=== PATIENT | female | born 1955 | race Caucasian/White ===

== ENCOUNTER → 2017-12-02 | Outpatient (CLI) | payer BC, OTHER ==
--- NOTE | 2017-12-02 21:13 | CT ---
EXAMINATION TYPE: CT brain wo con DATE OF EXAM: 12/02/2017 COMPARISON: NONE HISTORY: Headache Unenhanced CT of the brain was performed. The ventricles, basal cisterns and sulci overlying the cerebral convexities demonstrate mild enlargem ent. There is no evidence for intracranial hemorrhage or sulcal effacement. There is decreased attenuation about the periventricular white matter and deep white matter of both c erebral hemispheres, compatible with chronic small vessel ischemia. Differential diagnosis does inclu de demyelination. No mass effects are seen.No midline shift. Osseous calvarium is intact. If symptoms persist consider MRI. IMPRESSION: 1. Age related atrophic and chronic small vessel ischemic change without acute intracranial process s een at this time.
== END | disposition home or self-care (01) ==
LOC: RADCTMAIN 19:02
PROVIDERS: ATTEND Family Medicine
DX: G31.1 Senile degeneration of brain, not elsewhere classified (principal); I67.82 Cerebral ischemia
CPT/HCPCS: 70450

== ENCOUNTER → 2021-01-23 | Outpatient (CLI) | payer MEDICARE, OTHER ==
--- NOTE | 2021-01-23 08:17 | CT ---
EXAMINATION TYPE: CT chest wo con DATE OF EXAM: 01/23/2021 COMPARISON: NONE HISTORY: Hypertension, SOB, chest pain, Dizziness, Covid-[address] DLP: 223.7 mGycm. Automated Exposure Control for Dose Reduction was Utilized. TECHNIQUE: CT scan of the thorax is performed without IV contrast. FINDINGS: LUNGS: Focal mild linear scarring in the right middle lobe coronal image 21. Mild biapical pleural/pa renchymal scarring. Additional scattered areas of mild linear scarring for reference in the lingula s agittal image 87 posterior aspect. No suspicious focal consolidation or groundglass opacity. No suspi cious nodules or masses. No pleural effusion or pneumothorax. Tracheobronchial tree is patent. MEDIASTINUM: Lack of IV contrast is noted to limit evaluation for mediastinal and especially hilar ad enopathy. There are no definitive greater than 1 cm hilar or mediastinal lymph nodes. Heart size uppe r limits of normal. No pericardial effusion is seen. There is ascending aortic aneurysm up to 4.1 cm in diameter axial image 25. Normal three-vessel origin from arch without aneurysm extension. Mild to moderate coronary artery calcification. OTHER: Calcification anterior to left hepatic lobe inferior margin image 69. Mild multilevel spurring in the spine. There is 2.0 x 1.1 cm x 2.8 cm intramuscular lipoma posterior lateral lower thoracic c hest wall muscle axial image 38 and coronal image 73 IMPRESSION: Mild chronic parenchymal changes without acute pulmonary process. Note is made of 4.1 cm ascending aortic aneurysm.
--- NOTE | 2021-01-23 08:41 | US ---
EXAMINATION TYPE: US carotid duplex BILAT DATE OF EXAM: 01/23/2021 COMPARISON: NONE CLINICAL HISTORY: I10 hypertension, R42 Dizzy,. Patient states having covid last year. Dizzy. HTN. EXAM MEASUREMENTS: RIGHT: Peak Systolic Velocity (PSV) cm/sec ----- Right CCA: 75.4 ----- Right ICA: 116.1 ----- Right ECA: 91.9 ICA/CCA ratio: 1.5 RIGHT: End Diastole cm/sec ----- Right CCA: 23.7 ----- Right ICA: 41.8 ----- Right ECA: 17.6 LEFT: Peak Systolic Velocity (PSV) cm/sec ----- Left CCA: 54.8 ----- Left ICA: 157.8 ----- Left ECA: 57.0 ICA/CCA ratio: 2.9 LEFT: End Diastole cm/sec ----- Left CCA: 17.5 ----- Left ICA: 48.6 ----- Left ECA: 13.1 VERTEBRALS (direction of flow): Right Vertebral: Antegrade Left Vertebral: Antegrade Rhythm: Normal Bilateral wall thickening. Elevated left ICA velocities. IMPRESSION: 1. Atherosclerotic plaque with findings suggestive of a 50-69% stenosis involving the proximal left I CA. Criteria for Assigning % of Stenosis / Diameter reduction (Estimation based on the indirect measurements of the internal carotid artery velocities (ICA PSV). 1. Normal (no stenosis)=ICA PSV < 125 cm/s: ratio < 2.0: ICA EDV<40 cm/s. 2. Less than 50% stenosis=ICA PSV < 125 cm/s: ratio < 2.0: ICA EDV<40 cm/s. 3. 50 to 69% stenosis=ICA PSV of 125 to 230 cm/s: ration 2.0 ? 4.0: ICA EDV 40-100 cm/s. 4. Greater than 70% stenosis to near occlusion= ICA PSV > 230 cm/s: ratio > 4.0: ICA EDV > 100 cm/s. 5. Near occlusion= ICA PSV velocities may be low or undetectable: variable ratio and ICA EDV. 6. Total occlusion=unable to detect flow.
== END ==
LOC: RADCTMAIN 07:26
PROVIDERS: ATTEND Family Medicine
DX: I10 Essential (primary) hypertension (principal); I71.2 Thoracic aortic aneurysm, without rupture; Z86.16 Personal history of COVID-19; I65.23 Occlusion and stenosis of bilateral carotid arteries
CPT/HCPCS: 71250; 93880

== ENCOUNTER → 2021-02-25 | Outpatient (CLI) | payer MEDICARE, OTHER ==
--- NOTE | 2021-02-26 11:35 | ECHOF ---
Referral Reason:Q23.1 Congenital insufficiency of aortic valve MEASUREMENTS -------- HEIGHT: 154.9 cm WEIGHT: 68.0 kg BP: 134/79 RVIDd: 2.8 cm (< 3.3) IVSd: 1.2 cm (0.6 - 1.1) LVIDd: 4.1 cm (3.9 - 5.3) LVPWd: 1.2 cm (0.6 - 1.1) IVSs: 1.6 cm LVIDs: 3.2 cm LVPWs: 1.5 cm LA Diam: 2.8 cm (2.7 - 3.8) LAESV Index (A-L): 18.35 ml/m Ao Diam: 3.1 cm (2.0 - 3.7) AV Cusp: 1.8 cm (1.5 - 2.6) MV EXCURSION: 16.144 mm (> 18.000) MV EF SLOPE: 57 mm/s (70 - 150) EPSS: 0.7 cm MV E Efren: 0.79 m/s MV DecT: 249 ms MV A Efren: 0.74 m/s MV E/A Ratio: 1.07 FINDINGS -------- Sinus rhythm. This was a technically good study. The left ventricular size is normal. There is borderline concentric left ventricular hypertrophy. Overall left ventricular systolic function is normal with, an EF between 60 - 65 %. The right ventricle is normal in size. Normal LA size by volume 22+/-6 ml/m2. The right atrium is normal in size. Interatrial and interventricular septum intact. There is mild aortic valve sclerosis. Trace amount of aortic regurgitation. The mitral valve leaflets are mildly thickened. There is trace mitral regurgitation. The tricuspid valve appears structurally normal. There is no pulmonic regurgitation present. The aortic root size is normal. Normal inferior vena cava with normal inspiratory collapse consistent with estimated right atrial pre ssure of 5 mmHg. There is no pericardial effusion. CONCLUSIONS -------- 1. The left ventricular size is normal. 2. There is borderline concentric left ventricular hypertrophy. 3. Overall left ventricular systolic function is normal with, an EF between 60 - 65 %. 4. There is mild aortic valve sclerosis. 5. Trace amount of aortic regurgitation. 6. The mitral valve leaflets are mildly thickened. 7. There is trace mitral regurgitation. 8. There is no pericardial effusion. SECTION GANG WORKER: HUGO Escobar
== END | disposition home or self-care (01) ==
LOC: RADECHMAIN 12:50
PROVIDERS: ATTEND Surgery
DX: I08.0 Rheumatic disorders of both mitral and aortic valves (principal)
CPT/HCPCS: 93306

== ENCOUNTER → 2021-08-01 | Outpatient (CLI) | payer BC, OTHER ==
--- NOTE | 2021-08-01 15:06 | CT ---
EXAMINATION TYPE: CT chest wo con DATE OF EXAM: 08/01/2021 COMPARISON: 01/23/2021 HISTORY: Pt had Covid 19 in 2019. Thoracic aneurysm w/out rupture CT DLP: [address] of the chest was performed with lung and mediastinal window settings submitted. The la ck of contrast limits evaluation of the vascular, mediastinal and parenchymal structures including th e upper abdomen. LUNGS: The lungs are clear and free of infiltrate. No atelectasis. No pulmonary nodule or mass is de tected. No pleural effusion. No CT evidence of interstitial lung disease. MEDIASTINUM/ROMANA: Ascending thoracic aortic aneurysm measuring 4.1 cm AP dimension versus 4.1 cm prev iously. The remainder of the thoracic aorta is of normal caliber. Mild atheromatous change noted. Mil d cardiomegaly appreciated. No evidence for mediastinal mass. No lymph nodes greater than 1cm. UPPER ABDOMEN: No significant abnormality is seen. OTHER: No significant other abnormality. IMPRESSION: 1. Stable ascending thoracic aortic aneurysm.
== END | disposition home or self-care (01) ==
LOC: RADCTMAIN 14:11
PROVIDERS: ATTEND Family Medicine
DX: I71.2 Thoracic aortic aneurysm, without rupture (principal); Z86.16 Personal history of COVID-19
CPT/HCPCS: 71250

== ENCOUNTER 2022-10-09 09:56 | Day surgery (SDC) | payer MEDICARE, OTHER ==
[2022-09-26 11:32] VITALS: BMI 28.3
[~2022-10-09 09:56] MED LIST: ALPRAZolam 0.25 MG TAB PO PRN; ALPRAZolam 0.5 MG TAB PO PRN; ASPIRIN 325 MG TAB PO STA
[2022-10-09] MEDS ORDERED: SODIUM CHLORIDE 0.9% 1,000 ML IV ONE ×2 (10:35→12:24)
[2022-10-09 11:18] LABS: Basophils # (A) 0.1 k/uL (0-0.2); Basophils % (A) 1 %; Eosinophils # (A) 0.3 k/uL (0-0.7); Eosinophils % (A) 4 %; HCT 36.5 % (34.0-46.0); HGB 12.7 gm/dL (11.4-16.0); Lymphocytes # (A) 3.9 k/uL (1.0-4.8); Lymphocytes % (A) 49 %; MCH 30.8 pg (25.0-35.0); MCHC 34.8 g/dL (31.0-37.0); MCV 88.3 fL (80.0-100.0); Monocytes # (A) 0.5 k/uL (0-1.0); Monocytes % (A) 6 %; Neutrophils # (A) 2.9 k/uL (1.3-7.7); Neutrophils % (A) 36 %; Platelet Count 306 k/uL (150-450); RBC 4.13 m/uL (3.80-5.40); RDW 11.8 % (11.5-15.5); WBC 7.9 k/uL (3.8-10.6)
[2022-10-09 11:21] LABS: Calcium 9.5 mg/dL (8.4-10.2); Potassium 4.5 mmol/L (3.5-5.1)
[2022-10-09] MEDS ORDERED: MIDAZOLAM 2 MG/2 ML VIAL IV ONE (12:50)
[2022-10-09] MEDS ORDERED: fentaNYL (PF) 50 MCG/ML 2 ML AMP IV ONE (12:50)
[2022-10-09] MEDS ORDERED: LIDOCAINE 1% INJ 10MG/ML (5 ML VIAL-PF) SQ ONE (12:51)
[2022-10-09] MEDS ORDERED: VERAPAMIL SYRINGE (5 MG/10 ML) INTRAARTER ONE (12:52)
[2022-10-09] MEDS: HEPARIN SODIUM 1,000 UN/ML (10ML VL) IV ONE ×2 (12:56→13:20)
[2022-10-09] MEDS ORDERED: CLOPIDOGREL 75 MG TAB PO ONE (13:13)
[2022-10-09] MEDS: NITROGLYCERIN 1000MCG/10ML SYRINGE INTRACORON ONE ×2 (13:15→13:28)
[2022-10-09] MEDS ORDERED: CYCLOBENZAPRINE 10 MG TAB PO PRN (13:34)
[2022-10-09] MEDS ORDERED: NITROGLYCERIN SL TABS 0.4 MG TAB SUBLINGUAL PRN (13:34)
[2022-10-09] MEDS ORDERED: ZOLPIDEM 5 MG TAB PO PRN (13:34)
[2022-10-09] MEDS ORDERED: RX INFO: IV CONTRAST WAS GIVEN 1 EACH MISC MISCELLANE PRN (13:34)
[2022-10-09] MEDS ORDERED: MAG HYDROX/AL HYDROX/SIMETH 30 ML CUP PO PRN (13:34)
[2022-10-09] MEDS ORDERED: ATROPINE SULFATE 0.1 MG/ML 10ML SYRINGE IV PRN (13:34)
--- NOTE | 2022-10-09 13:40 | P.PCN ---
Date of Procedure: 10/09/22 Operative Findings: CARDIAC CATHETERIZATION AND PERCUTANEOUS CORONARY INTERVENTION PERFORMING PHYSICIAN: Jaylen Alanis MD, RPVI PROCEDURE PERFORMED: 1. Selective right coronary angiogram 2. Intravascular ultrasound of the right coronary artery 3. Successful stenting of mid RCA using 3.5 x 23 mm Xience NAKUL which with an excellent angiographic results INDICATION: This is a 67-year-old female patient was experiencing symptoms of chest discomfort which she underwent a coronary CTA and that showed 70% lesion involving the right coronary artery. COMPLICATION: None APPROACH: Right radial approach LEVEL OF SEDATION: Moderate with the sedation time off 41 minutes PROCEDURE DESCRIPTION: After obtaining an informed consent the patient was brought to the cardiac r and d lab technician. The right radial artery was cannulated using puncture technique, the micropuncture wire passed easily then I placed a 6-Tongan sheath at the right radial artery. I gave the patient 2 mg of verapamil intra-arterial and initially 4000 use of heparin intravenous and subsequently additional 2000 of heparin given with continuous ACT monitoring. I did engage the RCA using JR4 guiding catheter. I did right coronary angiogram which revealed severe tubular lesion involving the mid right coronary artery. Subsequently I did wire the RCA using a run-through wire. And O ultrasound was performed and showed an RCA diameter about 3.5 mm. I did predilatation using 2.5 mm balloon and then I deployed 3.5 x 23 mm stent. The proximal portion of the stent was postdilated using 4 mm balloon. The following angiogram showed an area of concern involving the proximal segment of the stented area. I did again and O ultrasound which showed no obvious dissection. Because of that I decided to treat the patient medically. The procedure was completed without any chronic elevation SELECTIVE CORONARY ANGIOGRAM: The right coronary artery: Large caliber vessel and a dominant vessel. The mid RCA has a tubular lesion appears to be in the range of 50%. The RCA distally appeared to be angiographically normal and bifurcates into PDA and PLV branches PCI OF THE RCA: Please see above CONCLUSION: Successful stenting of the mid right coronary artery with an excellent angiographic results POSTPROCEDURE MANAGEMENT: #1 dual antiplatelet therapy using aspirin and Plavix for at least 6 months and preferably twelve-month #2 aggressive cholesterol control #3 follow-up with the patient
[2022-10-09] MEDS ORDERED: IOPAMIDOL-370 100ML BTL INJ ONE (13:42)
[2022-10-09] MEDS ORDERED: SODIUM CHLORIDE 0.9% 1,000 ML in EMPTY BAG 1 BAG IV SCH (13:45)
[2022-10-09] MEDS: SODIUM CHLORIDE 0.9% 1,000 ML in EMPTY BAG 1 BAG IV SCH ×2 (15:12→21:51)
[2022-10-09] MEDS: PREGABALIN 50 MG CAP PO SCH ×2 (16:34→20:42)
[2022-10-09] MEDS: carvediloL 3.125 MG TAB PO SCH (17:18)
[2022-10-09] MEDS: ATORVASTATIN 80 MG TAB PO SCH ×2 (20:42→20:43)
[2022-10-09] MEDS: lisinopriL 20 MG TAB PO SCH (20:42)
[2022-10-10] MEDS: carvediloL 3.125 MG TAB PO SCH (06:30)
[2022-10-10 07:44] VITALS: RESP 16; TEMP 98
--- NOTE | 2022-10-10 07:58 | P.DS ---
Providers Attending physician: Jaylen Alanis Consults: 10/09/22 13:35 Consult Physician Routine Consulting Provider: [facility] Consult Reason/Comments: Post Interventional Patient Do you want consulting provider notified?: Already Contacted Primary care physician: Sark[facility] Course: The patient is a pleasant 67-year-old female patient went underwent yesterday successful stenting of the right coronary artery with an excellent angiographic results and with no complication from right radial approach. The patient was seen this morning. She is asymptomatic. She's he wouldn't be stable. The right radial site is soft and nontender with no bruises. The patient is going to be discharged on dual antiplatelet therapy along with high intensity statin to be seen in the office in a week Plan - Discharge Summary Discharge Rx Participant: No New Discharge Prescriptions: New Clopidogrel [Plavix] 75 mg PO DAILY #90 tablet Atorvastatin [Lipitor] 80 mg PO HS #90 tab Continue Cyclobenzaprine [Flexeril] 10 mg PO TID PRN PRN Reason: Pain Albuterol Sulfate [Proventil Hfa] 1 - 2 puff INHALATION Q6HR PRN PRN Reason: Shortness Of Breath lisinopriL [Zestril] 20 mg PO BID Albuterol Inhaler [Ventolin Hfa Inhaler] 1 - 2 puff INHALATION DIRECTED PRN PRN Reason: Shortness Of Breath DULoxetine HCL [Cymbalta] 30 mg PO DAILY Multivit with Calcium,Iron,Min [Women's Multivitamin] 1 each PO DAILY carvediloL [Coreg] 3.125 mg PO BID Pregabalin [Lyrica] 50 mg PO TID Ezetimibe [Zetia] 10 mg PO DAILY L.acidoph,Paracasei, B.lactis [Probiotic] 1 each PO DIRECTED Astragalus Supplement 1 dose PO DAILY Aspirin [Adult Low Dose Aspirin EC] 81 mg PO DAILY Discharge Medication List Albuterol Sulfate [Proventil Hfa] 1 - 2 puff INHALATION Q6HR PRN 06/08/15 [History] Cyclobenzaprine [Flexeril] 10 mg PO TID PRN 06/08/15 [History] Albuterol Inhaler [Ventolin Hfa Inhaler] 1 - 2 puff INHALATION DIRECTED PRN 09/26/22 [History] Aspirin [Adult Low Dose Aspirin EC] 81 mg PO DAILY 09/26/22 [History] Astragalus Supplement 1 dose PO DAILY 09/26/22 [History] DULoxetine HCL [Cymbalta] 30 mg PO DAILY 09/26/22 [History] Ezetimibe [Zetia] 10 mg PO DAILY 09/26/22 [History] L.acidoph,Paracasei, B.lactis [Probiotic] 1 each PO DIRECTED 09/26/22 [Hist ory] Multivit with Calcium,Iron,Min [Women's Multivitamin] 1 each PO DAILY 09/26/22 [History] Pregabalin [Lyrica] 50 mg PO TID 09/26/22 [History] carvediloL [Coreg] 3.125 mg PO BID 09/26/22 [History] lisinopriL [Zestril] 20 mg PO BID 09/26/22 [History] Atorvastatin [Lipitor] 80 mg PO HS #90 tab 10/10/22 [Rx] Clopidogrel [Plavix] 75 mg PO DAILY #90 tablet 10/10/22 [Rx] Follow up Appointment(s)/Referral(s): Jaylen Alanis MD [STAFF PHYSICIAN] - 1 Week (APPOINTMENT MADE ON October @ 2:30PM )
[2022-10-10] MEDS ORDERED: CLOPIDOGREL 75 MG TAB PO SCH (09:00)
[2022-10-10] MEDS ORDERED: LACTOBACILLUS ACIDOPH & BULGAR 1 EACH PACKET PO SCH (09:00)
[2022-10-10] MEDS ORDERED: DULoxetine HCL 30 MG CAPSULE.DR PO SCH (09:00)
[2022-10-10] MEDS ORDERED: ASPIRIN 81 MG PO SCH (09:00)
[2022-10-10] MEDS ORDERED: [UNRECOGNIZED DRUG - OTHER] PO SCH (09:00)
[2022-10-10] MEDS ORDERED: EZETIMIBE 10 MG TAB PO SCH (09:00)
[2022-10-10] MEDS ORDERED: MULTIVITAMINS, THERA 1 EACH TAB PO SCH (09:00)
[2022-10-10] MEDS: lisinopriL 20 MG TAB PO SCH (09:29)
[2022-10-10] MEDS: PREGABALIN 50 MG CAP PO SCH (09:29)
[2022-10-10 09:36] VITALS: BP 107/68; PULSE 69
== END 2022-10-10 10:20 | disposition home or self-care (01) ==
LOC: CATHCVL 09:56 → 6NMEDSUR 14:25 → CATHCVL 10-10 10:20
PROVIDERS: ATTEND Internal Medicine Interventional Cardiology
DX: I65.23 Occlusion and stenosis of bilateral carotid arteries (principal); I10 Essential (primary) hypertension; E78.5 Hyperlipidemia, unspecified; I77.819 Aortic ectasia, unspecified site; I25.10 Atherosclerotic heart disease of native coronary artery without angina pectoris; F17.210 Nicotine dependence, cigarettes, uncomplicated; Z79.82 Long term (current) use of aspirin; Z79.51 Long term (current) use of inhaled steroids; Z79.899 Other long term (current) drug therapy; Z82.49 Family history of ischemic heart disease and other diseases of the circulatory system
CPT/HCPCS: 92978; 93454; 80048; 82565; 85025; C9600; C1769 ×3; C1887; C1894; C1725 ×2; C1753; C1874; J2250; J2001; J3010; J1644; Q9967

== ENCOUNTER → 2023-01-26 | Outpatient (CLI) | payer MEDICARE ==
--- NOTE | 2023-01-26 15:55 | CT ---
EXAMINATION TYPE: CT chest wo con DATE OF EXAM: 01/26/2023 COMPARISON: Prior CT August 01, 2021 HISTORY: aneurysm. Hypertension. CT DLP: 306.3 mGycm. Automated Exposure Control for Dose Reduction was Utilized. TECHNIQUE: CT scan of the thorax is performed without IV contrast. FINDINGS: LUNGS: Mild bibasilar linear scarring and atelectasis. No concerning parenchymal mass or nodule ident ified. There is no pleural effusion or pneumothorax seen. The tracheobronchial tree is patent. MEDIASTINUM: Lack of IV contrast is noted to limit evaluation for mediastinal and especially hilar ad enopathy. There are no definitive new greater than 1 cm mediastinal lymph nodes. No pericardial eff usion is seen. Heart size upper limits of normal. Coronary stent in the RCA distribution as seen on c urrent study. There is ascending aortic aneurysm up to 4.0 cm redemonstrated does not extend into the descending aorta. No significant change from prior. OTHER: No additional significant abnormality is seen. IMPRESSION: Stable 4.0 cm ascending aortic aneurysm when accounting for technical differences.
== END | disposition home or self-care (01) ==
LOC: RADCTMAIN 14:24
PROVIDERS: ATTEND Family Medicine
DX: I71.21 Aneurysm of the ascending aorta, without rupture (principal); R01.0 Benign and innocent cardiac murmurs; I10 Essential (primary) hypertension
CPT/HCPCS: 71250

== ENCOUNTER → 2023-07-28 | Outpatient (CLI) | payer MEDICARE ==
--- NOTE | 2023-07-28 20:28 | XR ---
EXAMINATION TYPE: XR knee complete RT DATE OF EXAM: 07/28/2023 COMPARISON: NONE HISTORY: Pain TECHNIQUE: Three views are submitted. FINDINGS: Spurring along the upper margin of the patella. There is mild narrowing of patellofemoral joint and m edial compartment knee joint. There is a bony density which could represent loose body within the kne e joint. Diffuse osteopenia.. Osseous structures are intact. No acute fracture seen. IMPRESSION: 1. No acute fracture or dislocation. A possible loose body within the knee joint. Recommend MRI.
--- NOTE | 2023-07-28 20:29 | XR ---
EXAM TYPE: LUMBAR SPINE X RAY SERIES COMPARISON: NONE HISTORY: Pain TECHNIQUE: 4 views are submitted. FINDINGS: Alignment is anatomic. The pedicles are intact. The transverse processes are intact. There is mult ilevel moderate degenerative disc disease most marked at L5-S1 with grade 1 anterior listhesis. Facet arthropathy L5-S1. Diffuse osteopenia. Vascular calcifications noted. IMPRESSION: 1. Multilevel moderate to severe degenerative disc disease with grade 1 anterolisthesis L5 on S1. Shayy pect foraminal encroachment. Recommend MRI.
== END | disposition home or self-care (01) ==
LOC: RADXRYALE 16:14
PROVIDERS: ATTEND Family Medicine
DX: M51.36 Other intervertebral disc degeneration, lumbar region (principal); M43.17 Spondylolisthesis, lumbosacral region; M25.561 Pain in right knee
CPT/HCPCS: 72110

== ENCOUNTER → 2024-02-17 | Outpatient (CLI) | payer MEDICARE ==
--- NOTE | 2024-02-18 12:05 | US ---
EXAMINATION TYPE: US venous doppler duplex LE RT DATE OF EXAM: 02/17/2024 1:07 PM COMPARISON: NONE CLINICAL INDICATION: Female, 68 years old with history of I80.221 PHLEBITIS; pain SIDE PERFORMED: Right TECHNIQUE: The lower extremity deep venous system is examined utilizing real time linear array sonog emani with graded compression, doppler sonography and color-flow sonography. VESSELS IMAGED: Common Femoral Vein Deep Femoral Vein Greater Saphenous Vein * Femoral Vein Popliteal Vein Small Saphenous Vein * Proximal Calf Veins (* superficial vessels) Right Leg: Negative for DVT IMPRESSION: Grayscale, color doppler, spectral doppler imaging performed of the deep veins of the lo wer extremities. There is normal flow, compressibility, vascular waveforms.
== END | disposition home or self-care (01) ==
LOC: RADUSWWP 12:50
PROVIDERS: ATTEND Family Medicine
DX: I80.221 Phlebitis and thrombophlebitis of right popliteal vein (principal); M79.604 Pain in right leg; R60.9 Edema, unspecified

== ENCOUNTER → 2025-01-12 | Outpatient (CLI) | payer MEDICARE ==
--- NOTE | 2025-01-12 12:33 | CT ---
EXAMINATION TYPE: CT chest wo con CT DLP: 233.50 mGycm, Automated exposure control for dose reduction was used. DATE OF EXAM: 01/12/2025 12:19 PM COMPARISON: Multiple CT chest with most recent 01/26/2023 CLINICAL INDICATION:Female, 69 years old with history of I71.20 THORACIC AORTIC ANEURYSM, WITHOUT RUP TURE,; PHH, F/U THORACIC AORTIC ANEURYSM, WITHOUT RUPTURE TECHNIQUE: Multiple axial images were obtained through the chest without IV contrast. Lack of IV or o ral contrast limits evaluation of solid and hollow organ viscera. . Coronal and sagittal reformats re viewed. FINDINGS: LUNGS/ PLEURA: No pleural effusion, pneumothorax, or focal consolidation. Stable minimal lingular sca rring. No suspicious pulmonary nodules or masses. AIRWAY: Patent and unremarkable.. HEART: Size within normal limits.No pericardial effusion Mild coronary artery calcifications present. MEDIASTINUM: No gross evidence of adenopathy. VASCULATURE: Stable ascending thoracic aortic aneurysm measuring up to 4.0 cm. The aortic root measu res up to 2.8 cm. The descending thoracic aorta measures up to 1.5 cm. Mild atherosclerotic calcifica tion of the aorta and its branches. MUSCULOSKELETAL: No acute osseous abnormalities. Mild degenerative changes of the midthoracic spine. SOFT TISSUES/LYMPH NODES: Unremarkable. LOWER NECK: No significant findings. UPPER ABDOMEN: No significant findings. IMPRESSION: Stable ascending aortic aneurysm measuring up to 4.0 cm. [facility], , 01/12/2025 12:31 PM
== END | disposition home or self-care (01) ==
LOC: RADCTMAIN 11:50
PROVIDERS: ATTEND Family Medicine
DX: I71.21 Aneurysm of the ascending aorta, without rupture (principal); R01.1 Cardiac murmur, unspecified; I10 Essential (primary) hypertension
CPT/HCPCS: 71250